=== PATIENT | male | born 1945 | race Caucasian/White ===

== ENCOUNTER → 2021-04-30 15:00 | Outpatient (BNVA) | payer MEDICARE, OTHER, SELFPAY | PROVIDERS: PCP Nurse Practitioner Family; Visit Provider Specialist | DX: G40.219 Localization-related (focal) (partial) symptomatic epilepsy and epileptic syndromes with complex partial seizures, intractable, without status epilepticus (principal); Z96.82 Presence of neurostimulator; F17.200 Nicotine dependence, unspecified, uncomplicated | CPT/HCPCS: 95970; 99215 ==

== ENCOUNTER → 2021-05-23 13:01 | Outpatient (BNVA) | payer MEDICARE, OTHER, SELFPAY | PROVIDERS: PCP Nurse Practitioner Family; Visit Provider Thoracic Surgery (Cardiothoracic Vascular Surgery) | DX: Z45.42 Encounter for adjustment and management of neurostimulator (principal) | CPT/HCPCS: 87635 ==

== ENCOUNTER 2021-05-28 05:43 | Day surgery (SDC) | payer MEDICARE, OTHER, SELFPAY ==
[2021-05-25 09:29] VITALS: BMI 25.7
--- NOTE | 2021-05-28 05:54 | XRR_ITS ---
PROCEDURE INFORMATION: Exam: XR Chest Exam date and time: 05/28/2021 5:54 AM Age: 75 years old Clinical indication: Device placement; Other: Vagal nerve stimulator generator exchange; Prior surgery TECHNIQUE: Imaging protocol: XR of the chest. Views: 1 view. COMPARISON: No relevant prior studies available. FINDINGS: Tubes, catheters and devices: A neurostimulator is present with stimulator wires along the left side of the lower cervical spine. Lungs: Unremarkable. No consolidation. Pleural spaces: Unremarkable. No pleural effusion. No pneumothorax. Heart/Mediastinum: Unremarkable. No cardiomegaly. Bones/joints: Unremarkable. XR/XR chest 1V portable [id number] IMPRESSION: No significant cardiopulmonary abnormality.
[2021-05-28 06:04] VITALS: BP 118/57; PULSE 81; RESP 20; TEMP 36.4; O2SAT 91
[2021-05-28] MEDS: sodium chloride 0.9% 1,000 ML 30 ML IV (06:17)
--- NOTE | 2021-05-28 06:18 | W.PM.OPSUD ---
Surgery/Procedure H&P Update DATE OF PROCEDURE: May 28, 2021 DATE H&P PERFORMED: 05/17/21 H&P UPDATE INFORMATION: I have reviewed H&P completed within last 30 days, I have examined patient prior to procedure and No changes to prior documentation PREOP DIAGNOSIS: Vagal nerve stimulator end of service PLANNED PROCEDURE: Operation Date: 05/28/21 07:00 Proposed Procedures p VNS Generator Exchange(Not Applicable) - Mehran Garsia MD
[2021-05-28 06:28] LABS: Add Urine Microscopic? NO; Charge for UA Resulting for Rev
--- NOTE | 2021-05-28 06:28 | ANES.PREANE2 ---
Pre-Anesthetic Assessment Pre-Anesthetic Assessment: Height/Weight: Height 1.8 m Weight 83.915 kg Temp Pulse Resp BP Pulse Ox 97.6 F 81 20 H 118/57 91 05/28/21 06:04 05/28/21 06:04 05/28/21 06:04 05/28/21 06:04 05/28/21 06:04 Preop Diagnosis: Vagal nerve stimulator end of service Proposed Procedure: Operation Date: 05/28/21 07:00 Proposed Procedures p VNS Generator Exchange(Not Applicable) - Mehran Garsia MD Familial anesthetic complications: None Was Beta Leon taken within 24 hours: N/A Was Clonidine taken within 24 hours: N/A Last intake: Intake Last Liquid Date 05/27/21 Last Liquid Time 19:00 Last Solid Date 05/27/21 Last Solid Time 19:00 Social: Social History: No alcohol and No tobacco Exam: Pre-Anes Outpt Exam: alert, oriented x 3, clear to auscultation bilaterally and regular rate & rhythm Airway: Cervical ROM: WNL MP: 3 Dentition: False Pulmonary: Pulmonary: Sleep apnea (noncompliant w/ CPAP) CV/HEM: CV/HEM: CAD (stents (> 1 year ago) - holding plavix) and PVD (will require intervention) Comments: AAA stent placed years ago Gikdu= Neuropsych: Neuropsych: Seizure (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
[2021-05-28 06:32] LABS: Basophils % 0.4 %; Eosinophils # 0.3 10^3/uL (0.0-0.8); Eosinophils % 2.7 %; Hematocrit 27.3 % (42.0-52.0); Hemoglobin 8.7 g/dL (11.7-16.6); Lymphocytes # 2.4 10^3/uL (0.8-4.8); Lymphocytes % 21.5 %; Mean Corpuscular HGB Conc 31.9 g/dL (30.0-36.0); Mean Corpuscular Hemoglobin 32.2 pg (28.0-34.0); Mean Corpuscular Volume 101.1 fl (80-94); Mean Platelet Volume 9.5 fL (7.4-10.4); Monocytes # 0.6 10^3/uL (0.2-0.9); Monocytes % 5.7 %; Neutrophils # 7.63 10^3/uL (1.8-7.7); Neutrophils % 69.3 %; Nucleated Red Blood Cells % 0 %; Platelet Count 347 10^3/cmm (130-400); Red Cell Distribution Width 12.7 % (12.1-15.1)
[2021-05-28 07:06] LABS: Anion Gap 12.2 (5-19); Blood Urea Nitrogen 23 mg/dL (8-23); Calcium 8.4 mg/dL (8.5-10.5); Carbon Dioxide 26 mmol/L (22-29); Chloride 101 mmol/L (98-107); Glucose 88 mg/dL (65-115); Osmolality Calculated 285 mOsm/kg (285-295); Potassium 3.2 mmol/L (3.5-5.1); Sodium 136 mmol/L (136-145)
[2021-05-28 07:23] LABS: Bilirubin Urine Neg (Negative); Blood Urine Neg (Negative); Glucose Urine UA Norm (Normal); Ketones Urine Negative (Negative); Leukocyte Esterase Urine Negative (Negative); Nitrate Urine Negative (Negative); Protein Urine Neg (Negative); Urine Appearance Clear (CLEAR); Urine Color Yellow (Yellow); Urobilinogen Urine Norm (Negative); pH Urine 5 (5-7)
[2021-05-28] MEDS: lidocaine 1% INJ 20 mL SUBCUT (07:40)
[2021-05-28] MEDS: ceFAZolin 1,000 mg SDV 1000 MG IRRIGATION (07:40)
[2021-05-28 08:18] VITALS: BP 116/86; PULSE 67; RESP 16; TEMP 36.2; O2SAT 93
[2021-05-28 08:20] VITALS: BP 112/54; PULSE 65; RESP 16; TEMP 36.2; O2SAT 93
--- NOTE | 2021-05-28 08:29 | P.OP_ITS ---
Operative Report Date of procedure: May 28, 2021 Pre-op Diagnosis: Vagal nerve stimulator end of service Post-op diagnosis: same Procedure Done: Vagal nerve stimulator generator exchange Implants: Vagal nerve stimulator Specimens removed/disposition: Old generator Pathology: none sent Surgeon: Mehran Garsia Anesthesia: MAC and Local Complications: None Condition: stable Disposition: same day Brief History: Mr. Shi is a 75-year-old gentleman with seizure disorder, managed by Dr. Alanis. He has a VNS generator in place which is at end of service with the last generator replacement occurring in 2016. We will requested to assist with generator exchange. Details the risk of the procedure were carefully and frankly discussed with Mr. Shi and family. The proper consents have been reviewed and signed. Procedure: Mr. Shi was taken to the operating room theater and carefully position on the OR table. He underwent IV conscious sedation anesthesia monitoring. His entire left chest wall was sterilely prepped and draped. Appropriate timeout was then completed and confirmed by all members of the operating team. 1% lidocaine was infiltrated over the previous incision line at which time a #15 scalpel blade was utilized to incise the skin and subcutaneous tissues down to the pseudocapsule which was opened exposing the VNS generator. The generator was delivered from the pocket. Retention screw was released. The generator was removed. New generator was then placed into the pocket and then secured to the lead with the setscrew. On table interrogation was then performed. Adequate parameters were obtained. Wound was irrigated with antibiotic solution and then closed in 2 layers of 3-0 Vicryl suture with the skin being reapproximated in a subcuticular manner with 4-0 Monocryl suture. Sterile dressings were applied. Mr. Shi Toller procedure well. He was awakened from IV conscious sedation and then transferred to the outpatient department. Family was consulted at completion of the procedure. Generator: Model [employer] serial number: [id number] Output: 3.25 normal mag 3.5 Frequency: 15 Hz Pulse width: 130 norm 250 Mag On time normal 30 seconds mag 60 seconds Off time: 0.5 minutes Duty cycle: 57% Detection is on at 30% Resistance: 1832 ohms
[2021-05-28 08:30] VITALS: BP 105/63; PULSE 67; RESP 18; TEMP 36.6; O2SAT 92
[2021-05-28 08:44] VITALS: BP 106/52; PULSE 67; RESP 18; O2SAT 99
[2021-05-28 09:03] VITALS: BP 102/51; PULSE 66; RESP 18; O2SAT 99
--- NOTE | 2021-05-28 15:54 | ANE.PACU2 ---
Inpatient post-anesthesia follow up: Airway intact: Yes Vital signs: Temperature 98 F Pulse Rate 66 Respiratory Rate 18 Blood Pressure 102/51 Pulse Oximetry 99 Oxygen Delivery Me thod Room Air Oxygen Flow Rate Fraction of Inspir ed Oxygen Hydration adequate: Yes Nausea and vomiting: No Pain level: 1 Mental status: Baseline
== END 2021-05-28 09:22 | disposition home or self-care (01) ==
PROVIDERS: PCP Nurse Practitioner Family; Visit Provider Thoracic Surgery (Cardiothoracic Vascular Surgery)
PROC: (CPT 61885; principal; 2021-05-28 07:00)
DX: Z45.42 Encounter for adjustment and management of neurostimulator (principal); Z79.82 Long term (current) use of aspirin; G47.30 Sleep apnea, unspecified; Z91.14 Patient's other noncompliance with medication regimen; I25.10 Atherosclerotic heart disease of native coronary artery without angina pectoris; Z95.5 Presence of coronary angioplasty implant and graft
CPT/HCPCS: 61885; 36415; 71045; 80048; 81003; 85025; C1767; J0690; J2704; J3010; J7030

== ENCOUNTER → 2021-06-20 12:10 | Outpatient (BNVA) | payer MEDICARE, OTHER, SELFPAY | PROVIDERS: PCP Nurse Practitioner Family; Visit Provider Specialist | DX: G40.219 Localization-related (focal) (partial) symptomatic epilepsy and epileptic syndromes with complex partial seizures, intractable, without status epilepticus (principal); Z96.82 Presence of neurostimulator | CPT/HCPCS: 95970; 99214 ==

== ENCOUNTER → 2021-12-26 12:21 | Outpatient (BNVA) | payer MEDICARE, OTHER, SELFPAY | PROVIDERS: PCP Nurse Practitioner Family; Visit Provider Specialist | DX: G40.219 Localization-related (focal) (partial) symptomatic epilepsy and epileptic syndromes with complex partial seizures, intractable, without status epilepticus (principal); G40.419 Other generalized epilepsy and epileptic syndromes, intractable, without status epilepticus; M48.00 Spinal stenosis, site unspecified; Z96.82 Presence of neurostimulator; F17.210 Nicotine dependence, cigarettes, uncomplicated | CPT/HCPCS: 95970; 99214 ==

== ENCOUNTER → 2022-06-18 13:04 | Outpatient (BNVA) | payer MEDICARE, OTHER, SELFPAY | PROVIDERS: PCP Nurse Practitioner Family; Visit Provider Specialist | DX: G40.109 Localization-related (focal) (partial) symptomatic epilepsy and epileptic syndromes with simple partial seizures, not intractable, without status epilepticus (principal); G40.409 Other generalized epilepsy and epileptic syndromes, not intractable, without status epilepticus; Z45.42 Encounter for adjustment and management of neurostimulator; M48.00 Spinal stenosis, site unspecified; Z96.82 Presence of neurostimulator | CPT/HCPCS: 95970; 99213 ==

== ENCOUNTER → 2023-06-09 14:13 | Outpatient (BNVA) | payer MEDICARE, OTHER, SELFPAY | PROVIDERS: PCP Nurse Practitioner Family; Visit Provider Specialist | DX: G40.219 Localization-related (focal) (partial) symptomatic epilepsy and epileptic syndromes with complex partial seizures, intractable, without status epilepticus (principal); Z45.42 Encounter for adjustment and management of neurostimulator; G40.109 Localization-related (focal) (partial) symptomatic epilepsy and epileptic syndromes with simple partial seizures, not intractable, without status epilepticus; Z96.89 Presence of other specified functional implants; M48.00 Spinal stenosis, site unspecified | CPT/HCPCS: 95970; 99213 ==

== ENCOUNTER → 2024-06-11 11:19 | Outpatient (BNVA) | payer MEDICARE, OTHER, SELFPAY | PROVIDERS: PCP Nurse Practitioner Family; Visit Provider Specialist | DX: G40.219 Localization-related (focal) (partial) symptomatic epilepsy and epileptic syndromes with complex partial seizures, intractable, without status epilepticus (principal); Z45.42 Encounter for adjustment and management of neurostimulator; G40.109 Localization-related (focal) (partial) symptomatic epilepsy and epileptic syndromes with simple partial seizures, not intractable, without status epilepticus; Z96.89 Presence of other specified functional implants; M48.00 Spinal stenosis, site unspecified | CPT/HCPCS: 95970; 99214 ==

== ENCOUNTER → 2024-09-20 11:30 | Outpatient (BNVA) | payer MEDICARE, OTHER, SELFPAY | PROVIDERS: PCP Nurse Practitioner Family; Referring Provider Nurse Practitioner Family; Visit Provider Specialist | DX: Z96.89 Presence of other specified functional implants (principal); T85.113A Breakdown (mechanical) of implanted electronic neurostimulator, generator, initial encounter; X58.XXXA Exposure to other specified factors, initial encounter; G40.109 Localization-related (focal) (partial) symptomatic epilepsy and epileptic syndromes with simple partial seizures, not intractable, without status epilepticus; M48.00 Spinal stenosis, site unspecified; R03.0 Elevated blood-pressure reading, without diagnosis of hypertension | CPT/HCPCS: 95970; 99214; 99215 ==